=== PATIENT | male | born 1965 | race Caucasian/White ===

== ENCOUNTER 2016-12-14 20:51 | Inpatient (IN) | payer MEDICAID ==
[~2016-12-14] VITALS: Ht 185.4 cm; Wt 126.1 kg
[2016-12-14] MEDS ORDERED: HydrALAZINE HCL 20 MG/ML VIAL IVP ONE ×2 (21:45→23:00)
[2016-12-14] MEDS ORDERED: NITROGLYCERIN 2% (1 GM=INCH) PACKET TP ONE (21:45)
[2016-12-14 22:03] LABS: BASOPHILS % (AUTO) 0.5 % (0.0-2.0); EOSINOPHILS % (AUTO) 1.7 % (1.0-6.0); HEMOGLOBIN 11.7 g/dL (13.5-17.5); LYMPHOCYTES # (AUTO) 3.5 K/uL (1.0-4.8); LYMPHOCYTES % (AUTO) 25.8 % (22.0-44.0); MEAN CORPUSCULAR HEMOGLOBIN 28.7 pg (26.0-34.0); MEAN CORPUSCULAR HGB CONC 32.6 G/dL (31.0-37.0); MEAN CORPUSCULAR VOLUME 88 fL (80-100); MONOCYTES # (AUTO) 0.8 K/uL (0.1-1.0); MONOCYTES % (AUTO) 5.9 % (2.0-9.0); NEUTROPHILS # (AUTO) 8.9 K/uL (1.8-7.7); NEUTROPHILS % (AUTO) 66.1 % (40.0-70.0); PLATELET COUNT (AUTO) 272 K/uL (150-450); RED BLOOD CELL COUNT(AUTO) 4.09 MIL/uL (4.50-5.90); RED CELL DISTRIBUTION WIDTH 15.6 % (11.5-14.5); WHITE BLOOD COUNT (AUTO) 13.5 K/uL (4.5-11.0)
[2016-12-14 22:24] LABS: ANION GAP 15 mmol/L (8-16); CALCIUM, TOTAL 8.5 mg/dL (8.8-10.5); CARBON DIOXIDE 22 mmol/L (22-29); CHLORIDE 106 mmol/L (98-107); CREATININE 5.86 mg/dL (0.60-1.30); GLOMERULAR FILTR. RATE CALC 10 mL/min (>60); POTASSIUM 3.2 mmol/L (3.5-5.1); SODIUM SERUM 143 mmol/L (136-145); UREA NITROGEN, BLOOD 59 mg/dL (7-18)
[2016-12-14 22:31] LABS: B-TYPE NATRIURETIC PEPTIDE 537 pg/mL (0-100)
[2016-12-14 22:48] LABS: ALANINE AMINOTRANSFERASE 52 U/L (12-78); ALBUMIN 3.4 g/dL (3.4-5.0); ASPARTATE AMINOTRANSFERASE 27 U/L (15-37); BILIRUBIN,TOTAL 0.3 mg/dL (0.1-1.0); CREATINE KINASE MB 3.8 ng/mL (0-5); CREATINE KINASE, TOTAL 432 U/L (39-308); TOTAL PROTEIN, SERUM 7.7 g/dL (6.4-8.2)
[2016-12-14] MEDS ORDERED: NITROPRUSSIDE SODIUM 50 MG in DEXTROSE 5%-WATER 248 ML IV PRN (22:48)
[2016-12-14 22:50] LABS: APPEARANCE,URINE CLEAR (CLEAR); GLUCOSE, URINE (UA) NEGATIVE (NEGATIVE); KETONES,URINE NEGATIVE (NEGATIVE); LEUKOCYTE ESTERASE ,URINE NEGATIVE (NEGATIVE); OCCULT BLOOD,URINE MODERATE (NEGATIVE); PH,URINE 6.5 (5.0-8.0); PROTEIN,URINE SEE CONFIRM (NEGATIVE)
[2016-12-14 22:51] LABS: ADD UA MICROSCOPIC YES
[2016-12-14 22:58] LABS: RBC,URINE None Seen /HPF (0-2); SULFOSALICYLIC ACID,URINE 3+ (Negative); WBC,URINE 0-2 /HPF (0-5)
[2016-12-14] MEDS ORDERED: ZOLPIDEM TARTRATE 10 MG TABLET PO PRN (23:00)
[2016-12-14] MEDS ORDERED: ASPIRIN 81 MG CHEWABLE TABLET PO ONE ×2 (23:00)
[2016-12-14] MEDS ORDERED: NITROGLYCERIN 0.4 MG SUBLINGUAL TABLET #25 SL ONE (23:00)
[2016-12-14 23:01] LABS: INFLUENZA TYPE B NEGATIVE FOR TYPE B (NEGATIVE)
[2016-12-14] MEDS ORDERED: NITROGLYCERIN 50 MG/D5% WATER 250 ML IV PRN (23:07)
[2016-12-14] MEDS ORDERED: POTASSIUM CHLORIDE 20 MEQ ER TABLET PO ONE (23:45)
[2016-12-15] VITALS (12 sets, daily range): BP systolic 109–203; BP diastolic 49–118
[2016-12-15] MEDS: HydrALAZINE HCL 20 MG/ML VIAL IVP PRN ×6 (01:15→23:42)
[2016-12-15] MEDS: OxyCODONE HCL/ACETAMINOPHEN 5-325 MG TABLET PO PRN ×2 (02:41→12:08)
[2016-12-15] MEDS: ONDANSETRON HCL 4 MG/2 ML VIAL IVP PRN ×3 (02:57→20:11)
[2016-12-15] MEDS ORDERED: INFLUENZA VIRUS VACCINE QVS 2016-17 (3YR+)/PF 60 MCG/0.5 ML SYRINGE IM ONE (03:45)
[2016-12-15] MEDS: ACETAMINOPHEN 325 MG TABLET PO PRN (06:18)
[2016-12-15 06:42] LABS: BASOPHILS % (AUTO) 0.3 % (0.0-2.0); EOSINOPHILS % (AUTO) 0.2 % (1.0-6.0); HEMATOCRIT 33.9 % (41-53); HEMOGLOBIN 10.9 g/dL (13.5-17.5); LYMPHOCYTES # (AUTO) 1.7 K/uL (1.0-4.8); LYMPHOCYTES % (AUTO) 15.7 % (22.0-44.0); MEAN CORPUSCULAR HEMOGLOBIN 28.7 pg (26.0-34.0); MEAN CORPUSCULAR HGB CONC 32.3 G/dL (31.0-37.0); MEAN CORPUSCULAR VOLUME 89 fL (80-100); MONOCYTES # (AUTO) 0.4 K/uL (0.1-1.0); MONOCYTES % (AUTO) 3.6 % (2.0-9.0); NEUTROPHILS # (AUTO) 8.9 K/uL (1.8-7.7); NEUTROPHILS % (AUTO) 80.2 % (40.0-70.0); PLATELET COUNT (AUTO) 255 K/uL (150-450); RED BLOOD CELL COUNT(AUTO) 3.81 MIL/uL (4.50-5.90); RED CELL DISTRIBUTION WIDTH 15.9 % (11.5-14.5)
[2016-12-15 06:49] LABS: ALBUMIN 3.3 g/dL (3.4-5.0); BILIRUBIN,TOTAL 0.3 mg/dL (0.1-1.0); CALCIUM, TOTAL 8.6 mg/dL (8.8-10.5); CREATININE 5.68 mg/dL (0.60-1.30); TOTAL PROTEIN, SERUM 7.3 g/dL (6.4-8.2)
[2016-12-15 06:56] LABS: POTASSIUM 2.9 mmol/L (3.5-5.1)
[2016-12-15] MEDS: HEPARIN SODIUM,PORCINE 5,000 UNITS/ML VIAL SQ SCH ×4 (08:13→23:43)
[2016-12-15] MEDS: PANTOPRAZOLE SODIUM 40 MG DR TABLET PO SCH (08:13)
[2016-12-15] MEDS ORDERED: POTASSIUM CHLORIDE 20 MEQ ER TABLET PO ONE ×3 (10:45→23:30)
[2016-12-15 11:53] LABS: VITAMIN B12 LEVEL > 2000 pg/mL (211-911)
[2016-12-15] MEDS: AmLODIPine BESYLATE 5 MG TABLET PO SCH (12:04)
[2016-12-15 14:14] LABS: APPEARANCE,URINE CLEAR (CLEAR); GLUCOSE, URINE (UA) NEGATIVE (NEGATIVE); KETONES,URINE NEGATIVE (NEGATIVE); LEUKOCYTE ESTERASE ,URINE NEGATIVE (NEGATIVE); OCCULT BLOOD,URINE TRACE (NEGATIVE); PROTEIN,URINE SEE CONFIRM (NEGATIVE)
[2016-12-15 14:25] LABS: RBC,URINE 0-2 /HPF (0-2); WBC,URINE 0-2 /HPF (0-5)
[2016-12-15 14:26] LABS: SQUAMOUS EPITHELIAL CELL,UR Rare /LPF (None Seen)
[2016-12-15 15:31] LABS: CALCIUM, TOTAL 9.1 mg/dL (8.8-10.5); CREATININE 5.49 mg/dL (0.60-1.30)
[2016-12-15 15:40] LABS: POTASSIUM 2.9 mmol/L (3.5-5.1)
[2016-12-15] MEDS: MORPHINE SULFATE 2 MG/ML SYRINGE IVP PRN ×2 (16:05→20:12)
[2016-12-15] MEDS ORDERED: SODIUM CHLORIDE 0.9% 100 ML ONE ×2 (16:22→17:33)
[2016-12-15] MEDS: POTASSIUM CHL 10 MEQ/WATER 50 ML IV SCH ×2 (16:39→17:27)
[2016-12-15] MEDS ORDERED: BISACODYL 5 MG EC TABLET PO ONE (23:30)
[2016-12-16 05:28] VITALS: BP 170/86
[2016-12-16] MEDS: MORPHINE SULFATE 2 MG/ML SYRINGE IVP PRN ×2 (05:42→13:21)
[2016-12-16] MEDS: ONDANSETRON HCL 4 MG/2 ML VIAL IVP PRN ×2 (05:42→13:20)
[2016-12-16] MEDS: HydrALAZINE HCL 20 MG/ML VIAL IVP PRN ×3 (05:42→19:41)
[2016-12-16 07:10] VITALS: BP 158/81
[2016-12-16 07:46] LABS: CALCIUM, TOTAL 8.8 mg/dL (8.8-10.5); CREATININE 5.49 mg/dL (0.60-1.30); MAGNESIUM 2.2 mg/dL (1.80-2.40); PHOSPHORUS 4.7 mg/dL (2.5-4.9); POTASSIUM 3.1 mmol/L (3.5-5.1)
[2016-12-16] MEDS: HEPARIN SODIUM,PORCINE 5,000 UNITS/ML VIAL SQ SCH ×2 (08:13→16:57)
[2016-12-16] MEDS: AmLODIPine BESYLATE 5 MG TABLET PO SCH (08:13)
[2016-12-16] MEDS: PANTOPRAZOLE SODIUM 40 MG DR TABLET PO SCH (08:13)
[2016-12-16 11:17] VITALS: BP 180/95
[2016-12-16] MEDS ORDERED: POTASSIUM CHLORIDE 20 MEQ ER TABLET PO ONE (15:00)
[2016-12-16] MEDS: MAGNESIUM HYDROXIDE SUSPENSION 30 ML UDCUP PO PRN (15:20)
[2016-12-16] MEDS: HydrALAZINE HCL 25 MG TABLET PO SCH (15:21)
[2016-12-16 15:57] VITALS: BP 158/80
[2016-12-16 17:43] LABS: CREATININE 5.39 mg/dL (0.60-1.30)
[2016-12-16 19:25] VITALS: BP 185/93
[2016-12-17] VITALS (8 sets, daily range): BP systolic 158–198; BP diastolic 83–106
[2016-12-17] MEDS: HEPARIN SODIUM,PORCINE 5,000 UNITS/ML VIAL SQ SCH ×3 (00:40→17:20)
[2016-12-17] MEDS: HydrALAZINE HCL 25 MG TABLET PO SCH ×3 (00:40→17:19)
[2016-12-17] MEDS: HydrALAZINE HCL 20 MG/ML VIAL IVP PRN ×4 (06:11→20:58)
[2016-12-17] MEDS: ACETAMINOPHEN 325 MG TABLET PO PRN (06:11)
[2016-12-17 07:58] LABS: CREATININE 5.8 mg/dL (0.60-1.30); MAGNESIUM 2.5 mg/dL (1.80-2.40); POTASSIUM 3.3 mmol/L (3.5-5.1)
[2016-12-17] MEDS: AmLODIPine BESYLATE 10 MG TABLET PO SCH (08:45)
[2016-12-17 10:29] LABS: BASOPHILS # (AUTO) 0.03 K/uL (0.00-0.20); BASOPHILS % (AUTO) 0.3 % (0.0-2.0); EOSINOPHILS # (AUTO) 0.28 K/uL (0.00-0.70); EOSINOPHILS % (AUTO) 2.33 % (1.0-6.0); HEMATOCRIT 35.7 % (41-53); HEMOGLOBIN 11.8 g/dL (13.5-17.5); LYMPHOCYTES # (AUTO) 2.2 K/uL (1.0-4.8); LYMPHOCYTES % (AUTO) 18.4 % (22.0-44.0); MEAN CORPUSCULAR HEMOGLOBIN 29.1 pg (26.0-34.0); MEAN CORPUSCULAR HGB CONC 32.9 G/dL (31.0-37.0); MEAN CORPUSCULAR VOLUME 88 fL (80-100); MONOCYTES # (AUTO) 0.8 K/uL (0.1-1.0); MONOCYTES % (AUTO) 6.9 % (2.0-9.0); NEUTROPHILS # (AUTO) 8.8 K/uL (1.8-7.7); NEUTROPHILS % (AUTO) 72.1 % (40.0-70.0); PLATELET COUNT (AUTO) 264 K/uL (150-450); RED BLOOD CELL COUNT(AUTO) 4.04 MIL/uL (4.50-5.90); RED CELL DISTRIBUTION WIDTH 16.2 % (11.5-14.5); WHITE BLOOD COUNT (AUTO) 12.2 K/uL (4.5-11.0)
[2016-12-17 10:38] LABS: ALBUMIN 3.3 g/dL (3.4-5.0); BILIRUBIN,TOTAL 0.4 mg/dL (0.1-1.0); TOTAL PROTEIN, SERUM 7.8 g/dL (6.4-8.2)
[2016-12-17] MEDS: PANTOPRAZOLE SODIUM 40 MG DR TABLET PO SCH (10:39)
[2016-12-17] MEDS ORDERED: MIDAZOLAM HCL 2 MG/2 ML VIAL ONE (12:36)
[2016-12-17] MEDS ORDERED: FentaNYL CITRATE-PF 100 MCG/2 ML VIAL ONE (12:36)
[2016-12-17] MEDS ORDERED: FentaNYL CITRATE-PF 100 MCG/2 ML VIAL IVP ONE (12:45)
[2016-12-17] MEDS ORDERED: MIDAZOLAM HCL 2 MG/2 ML VIAL IVP ONE (12:46)
[2016-12-17] MEDS: SPIRONOLACTONE 25 MG TABLET PO SCH (15:25)
[2016-12-17] MEDS: MORPHINE SULFATE 2 MG/ML SYRINGE IVP PRN (21:15)
[2016-12-18] VITALS (9 sets, daily range): BP systolic 133–200; BP diastolic 81–118
[2016-12-18] MEDS: HydrALAZINE HCL 25 MG TABLET PO SCH ×3 (00:29→16:38)
[2016-12-18] MEDS: HEPARIN SODIUM,PORCINE 5,000 UNITS/ML VIAL SQ SCH ×3 (00:29→16:38)
[2016-12-18 05:41] LABS: COMPLEMENT C3 122 mg/dL (82-167); COMPLEMENT C4 24 mg/dL (14-44)
[2016-12-18] MEDS: HydrALAZINE HCL 20 MG/ML VIAL IVP PRN (06:10)
[2016-12-18] MEDS: MAGNESIUM HYDROXIDE SUSPENSION 30 ML UDCUP PO PRN (06:10)
[2016-12-18] MEDS: SPIRONOLACTONE 25 MG TABLET PO SCH (07:52)
[2016-12-18] MEDS: AmLODIPine BESYLATE 10 MG TABLET PO SCH (07:52)
[2016-12-18] MEDS: PANTOPRAZOLE SODIUM 40 MG DR TABLET PO SCH (07:53)
[2016-12-18 08:41] LABS: BASOPHILS % (AUTO) 0.3 % (0.0-2.0); EOSINOPHILS % (AUTO) 4.6 % (1.0-6.0); HEMATOCRIT 34.8 % (41-53); HEMOGLOBIN 11.5 g/dL (13.5-17.5); LYMPHOCYTES # (AUTO) 1.8 K/uL (1.0-4.8); MEAN CORPUSCULAR HEMOGLOBIN 29.2 pg (26.0-34.0); MEAN CORPUSCULAR VOLUME 89 fL (80-100); MONOCYTES # (AUTO) 0.8 K/uL (0.1-1.0); MONOCYTES % (AUTO) 7.2 % (2.0-9.0); NEUTROPHILS # (AUTO) 8.2 K/uL (1.8-7.7); NEUTROPHILS % (AUTO) 71.9 % (40.0-70.0); PLATELET COUNT (AUTO) 279 K/uL (150-450); RED BLOOD CELL COUNT(AUTO) 3.93 MIL/uL (4.50-5.90); RED CELL DISTRIBUTION WIDTH 16.1 % (11.5-14.5); WHITE BLOOD COUNT (AUTO) 11.5 K/uL (4.5-11.0)
[2016-12-18 09:05] LABS: IGG (IMMUNOFIXATION) 1383 mg/dL (700-1600)
[2016-12-18 09:13] LABS: ALBUMIN 3.1 g/dL (3.4-5.0); BILIRUBIN,TOTAL 0.4 mg/dL (0.1-1.0); CALCIUM, TOTAL 8.6 mg/dL (8.8-10.5); CREATININE 5.6 mg/dL (0.60-1.30); MAGNESIUM 2.6 mg/dL (1.80-2.40); POTASSIUM 3.4 mmol/L (3.5-5.1); TOTAL PROTEIN, SERUM 7.3 g/dL (6.4-8.2)
[2016-12-18] MEDS: OxyCODONE HCL/ACETAMINOPHEN 5-325 MG TABLET PO PRN (10:20)
[2016-12-18] MEDS: LABETALOL HCL 100 MG TABLET PO SCH ×2 (10:20→21:03)
[2016-12-18] MEDS: CloNIDine HCL 0.1 MG TABLET PO SCH ×2 (12:39→16:38)
[2016-12-18 13:12] LABS: ALPHA-1 GLOBULINS(PEP) 0.3 g/dL (0.0-0.4); ALPHA-2 GLOBULINS (PEP) 0.8 g/dL (0.4-1.0); BETA (PEP) 0.9 g/dL (0.7-1.3); GAMMA GLOBULINS (PEP) 1.5 g/dL (0.4-1.8); GLOBULIN TOTAL (PEP) 3.4 g/dL (2.2-3.9); M-SPIKE (PEP) Not Observed g/dL (Not Observed); TOTAL PROTEIN 6.9 g/dL (6.0-8.5)
[2016-12-18 14:37] LABS: ATYPICAL P-ANCA AB <1:20 titer (Neg:<1:20); CYTOPLASMIC (C-ANCA) AB, IGG <1:20 titer (Neg:<1:20); PERINUCLEAR (P-ANCA) IGG AB <1:20 titer (Neg:<1:20)
[2016-12-18 16:42] LABS: ALPHA-1 URINE (ELP) 4.2 %; ALPHA-2 URINE(ELP) 16.3 %; BETA URINE(ELP) 15.4 %; GAMMA URINE(ELP) 23.5 %
[2016-12-18 20:07] LABS: ANTI NUCLEAR AB,DIRECT(SCREEN) Negative (Negative)
[2016-12-19] VITALS (7 sets, daily range): BP systolic 116–180; BP diastolic 68–110
[2016-12-19] MEDS: CloNIDine HCL 0.1 MG TABLET PO SCH ×4 (00:10→23:35)
[2016-12-19] MEDS: HydrALAZINE HCL 25 MG TABLET PO SCH ×4 (00:10→23:35)
[2016-12-19] MEDS: HEPARIN SODIUM,PORCINE 5,000 UNITS/ML VIAL SQ SCH ×4 (00:10→23:35)
[2016-12-19] MEDS: MAGNESIUM HYDROXIDE SUSPENSION 30 ML UDCUP PO PRN (05:25)
[2016-12-19] MEDS: OxyCODONE HCL/ACETAMINOPHEN 5-325 MG TABLET PO PRN ×2 (05:25→20:18)
[2016-12-19 06:52] LABS: BASOPHILS # (AUTO) 0.06 K/uL (0.00-0.20); BASOPHILS % (AUTO) 0.6 % (0.0-2.0); EOSINOPHILS # (AUTO) 0.64 K/uL (0.00-0.70); EOSINOPHILS % (AUTO) 5.98 % (1.0-6.0); HEMATOCRIT 33.8 % (41-53); HEMOGLOBIN 11.1 g/dL (13.5-17.5); LYMPHOCYTES # (AUTO) 2.2 K/uL (1.0-4.8); LYMPHOCYTES % (AUTO) 20.5 % (22.0-44.0); MEAN CORPUSCULAR HEMOGLOBIN 29.4 pg (26.0-34.0); MEAN CORPUSCULAR VOLUME 89 fL (80-100); MONOCYTES # (AUTO) 0.9 K/uL (0.1-1.0); MONOCYTES % (AUTO) 7.9 % (2.0-9.0); NEUTROPHILS % (AUTO) 65.1 % (40.0-70.0); PLATELET COUNT (AUTO) 272 K/uL (150-450); RED BLOOD CELL COUNT(AUTO) 3.79 MIL/uL (4.50-5.90); RED CELL DISTRIBUTION WIDTH 16.4 % (11.5-14.5); WHITE BLOOD COUNT (AUTO) 10.7 K/uL (4.5-11.0)
[2016-12-19 07:23] LABS: ALBUMIN 2.9 g/dL (3.4-5.0); BILIRUBIN,TOTAL 0.3 mg/dL (0.1-1.0); CALCIUM, TOTAL 8.4 mg/dL (8.8-10.5); CREATININE 5.55 mg/dL (0.60-1.30); MAGNESIUM 2.7 mg/dL (1.80-2.40); PHOSPHORUS 4.6 mg/dL (2.5-4.9); POTASSIUM 3.7 mmol/L (3.5-5.1); TOTAL PROTEIN, SERUM 6.9 g/dL (6.4-8.2)
[2016-12-19] MEDS: PANTOPRAZOLE SODIUM 40 MG DR TABLET PO SCH (08:13)
[2016-12-19] MEDS: SPIRONOLACTONE 25 MG TABLET PO SCH (08:13)
[2016-12-19] MEDS: AmLODIPine BESYLATE 10 MG TABLET PO SCH (08:13)
[2016-12-19] MEDS: LABETALOL HCL 100 MG TABLET PO SCH ×2 (12:05→20:18)
[2016-12-19] MEDS: HydrALAZINE HCL 20 MG/ML VIAL IVP PRN (12:06)
[2016-12-20] VITALS (7 sets, daily range): BP systolic 138–162; BP diastolic 74–95
[2016-12-20 07:14] LABS: BASOPHILS % (AUTO) 0.4 % (0.0-2.0); EOSINOPHILS % (AUTO) 6.6 % (1.0-6.0); HEMATOCRIT 34.7 % (41-53); HEMOGLOBIN 11.1 g/dL (13.5-17.5); LYMPHOCYTES # (AUTO) 2.1 K/uL (1.0-4.8); LYMPHOCYTES % (AUTO) 22.3 % (22.0-44.0); MEAN CORPUSCULAR HEMOGLOBIN 28.8 pg (26.0-34.0); MEAN CORPUSCULAR HGB CONC 31.9 G/dL (31.0-37.0); MEAN CORPUSCULAR VOLUME 90 fL (80-100); MONOCYTES # (AUTO) 0.7 K/uL (0.1-1.0); MONOCYTES % (AUTO) 7.2 % (2.0-9.0); NEUTROPHILS # (AUTO) 6.1 K/uL (1.8-7.7); NEUTROPHILS % (AUTO) 63.5 % (40.0-70.0); PLATELET COUNT (AUTO) 290 K/uL (150-450); RED BLOOD CELL COUNT(AUTO) 3.85 MIL/uL (4.50-5.90); RED CELL DISTRIBUTION WIDTH 15.5 % (11.5-14.5); WHITE BLOOD COUNT (AUTO) 9.6 K/uL (4.5-11.0)
[2016-12-20 07:34] LABS: ALBUMIN 2.9 g/dL (3.4-5.0); BILIRUBIN,TOTAL 0.3 mg/dL (0.1-1.0); CALCIUM, TOTAL 8.6 mg/dL (8.8-10.5); CREATININE 5.34 mg/dL (0.60-1.30); MAGNESIUM 2.7 mg/dL (1.80-2.40); PHOSPHORUS 4.9 mg/dL (2.5-4.9); POTASSIUM 3.9 mmol/L (3.5-5.1)
[2016-12-20] MEDS: HEPARIN SODIUM,PORCINE 5,000 UNITS/ML VIAL SQ SCH ×2 (08:00→16:00)
[2016-12-20] MEDS: HydrALAZINE HCL 20 MG/ML VIAL IVP PRN (09:16)
[2016-12-20 10:13] LABS: PROTHROMBIN TIME 10.6 SEC (9.4-11.6)
[2016-12-20] MEDS: LABETALOL HCL 100 MG TABLET PO SCH ×2 (11:09→20:30)
[2016-12-20] MEDS: HydrALAZINE HCL 25 MG TABLET PO SCH ×2 (11:09→16:00)
[2016-12-20] MEDS: CloNIDine HCL 0.1 MG TABLET PO SCH ×2 (11:09→16:00)
[2016-12-20] MEDS: SPIRONOLACTONE 25 MG TABLET PO SCH (11:09)
[2016-12-20] MEDS: PANTOPRAZOLE SODIUM 40 MG DR TABLET PO SCH (11:10)
[2016-12-20] MEDS: AmLODIPine BESYLATE 10 MG TABLET PO SCH (11:10)
[2016-12-20] MEDS ORDERED: MIDAZOLAM HCL 2 MG/2 ML VIAL ONE (13:25)
[2016-12-20] MEDS ORDERED: FentaNYL CITRATE-PF 100 MCG/2 ML VIAL ONE (13:25)
[2016-12-20] MEDS ORDERED: HEPARIN SODIUM 1000 UNITS/NS 500 ML ONE (13:26)
[2016-12-20] MEDS ORDERED: LIDOCAINE HCL 1%/EPI 1:200,000/PF 10 ML VIAL ONE (13:26)
[2016-12-20] MEDS ORDERED: HEPARIN SODIUM,PORCINE 1,000 UNITS/ML 10 ML VIAL ONE (13:26)
[2016-12-20] MEDS ORDERED: CeFAZolin 1 GM/DEXTROSE 50 ML IV ONE ×2 (13:31→15:45)
[2016-12-20] MEDS ORDERED: MIDAZOLAM HCL 2 MG/2 ML VIAL IVP ONE (14:20)
[2016-12-20] MEDS ORDERED: FentaNYL CITRATE-PF 100 MCG/2 ML VIAL IVP ONE (14:30)
[2016-12-20] MEDS: OxyCODONE HCL/ACETAMINOPHEN 5-325 MG TABLET PO PRN (20:30)
[2016-12-21] MEDS: HydrALAZINE HCL 25 MG TABLET PO SCH ×3 (00:10→17:39)
[2016-12-21] MEDS: CloNIDine HCL 0.1 MG TABLET PO SCH ×3 (00:10→17:39)
[2016-12-21] MEDS ORDERED: FentaNYL CITRATE-PF 100 MCG/2 ML VIAL IVP ONE (00:17)
[2016-12-21 03:47] VITALS: BP 136/76
[2016-12-21 05:58] LABS: BASOPHILS % (AUTO) 0.5 % (0.0-2.0); EOSINOPHILS % (AUTO) 4.8 % (1.0-6.0); HEMATOCRIT 34.9 % (41-53); HEMOGLOBIN 11.1 g/dL (13.5-17.5); LYMPHOCYTES # (AUTO) 2.6 K/uL (1.0-4.8); LYMPHOCYTES % (AUTO) 24.7 % (22.0-44.0); MEAN CORPUSCULAR HEMOGLOBIN 28.5 pg (26.0-34.0); MEAN CORPUSCULAR HGB CONC 31.8 G/dL (31.0-37.0); MEAN CORPUSCULAR VOLUME 90 fL (80-100); MONOCYTES # (AUTO) 0.8 K/uL (0.1-1.0); MONOCYTES % (AUTO) 7.3 % (2.0-9.0); NEUTROPHILS # (AUTO) 6.5 K/uL (1.8-7.7); NEUTROPHILS % (AUTO) 62.7 % (40.0-70.0); PLATELET COUNT (AUTO) 299 K/uL (150-450); RED BLOOD CELL COUNT(AUTO) 3.89 MIL/uL (4.50-5.90); RED CELL DISTRIBUTION WIDTH 15.6 % (11.5-14.5); WHITE BLOOD COUNT (AUTO) 10.4 K/uL (4.5-11.0)
[2016-12-21 06:16] LABS: BILIRUBIN,TOTAL 0.4 mg/dL (0.1-1.0); CALCIUM, TOTAL 8.8 mg/dL (8.8-10.5); CREATININE 5.3 mg/dL (0.60-1.30); TOTAL PROTEIN, SERUM 7.3 g/dL (6.4-8.2)
[2016-12-21] MEDS ORDERED: LIDOCAINE HCL/PF 1% 30 ML VIAL ONE (06:49)
[2016-12-21] MEDS ORDERED: HEPARIN SODIUM,PORCINE 5,000 UNITS/ML VIAL SQ ONE (06:49)
[2016-12-21] MEDS ORDERED: SODIUM CHLORIDE 0.9% 10 ML ONE (06:49)
[2016-12-21 07:02] VITALS: BP 167/109
[2016-12-21 07:21] LABS: POTASSIUM 4.9 mmol/L (3.5-5.1)
[2016-12-21] MEDS: AmLODIPine BESYLATE 10 MG TABLET PO SCH (07:37)
[2016-12-21] MEDS: LABETALOL HCL 100 MG TABLET PO SCH ×2 (07:37→20:38)
[2016-12-21] MEDS: SPIRONOLACTONE 25 MG TABLET PO SCH (07:37)
[2016-12-21] MEDS: HEPARIN SODIUM,PORCINE 5,000 UNITS/ML VIAL SQ SCH ×3 (07:38→17:39)
[2016-12-21] MEDS: HydrALAZINE HCL 20 MG/ML VIAL IVP PRN (07:41)
[2016-12-21] MEDS ORDERED: ALTEPLASE 2 MG/VIAL IVCATH ONE ×2 (08:00)
[2016-12-21] MEDS ORDERED: HEPARIN SODIUM,PORCINE 1,000 UNITS/ML VIAL IVP ONE ×2 (08:00)
[2016-12-21] MEDS: PANTOPRAZOLE SODIUM 40 MG DR TABLET PO SCH (08:18)
[2016-12-21] MEDS ORDERED: SODIUM CHLORIDE 0.9% 1,000 ML IV ONE ×2 (09:30→11:52)
[2016-12-21 17:21] VITALS: BP 137/102
[2016-12-21 19:55] VITALS: BP 132/98
[2016-12-21] MEDS: OxyCODONE HCL/ACETAMINOPHEN 5-325 MG TABLET PO PRN (20:46)
[2016-12-21] MEDS ORDERED: HEPARIN SODIUM,PORCINE 1,000 UNITS/ML 10 ML VIAL IVP ONE ×2 (22:39→22:42)
[2016-12-21] MEDS ORDERED: PROPOFOL 1% 20 ML VIAL IVP ONE ×2 (22:39→22:42)
[2016-12-22] VITALS (7 sets, daily range): BP systolic 130–149; BP diastolic 76–96
[2016-12-22] MEDS: CloNIDine HCL 0.1 MG TABLET PO SCH ×4 (00:57→23:53)
[2016-12-22] MEDS: HEPARIN SODIUM,PORCINE 5,000 UNITS/ML VIAL SQ SCH ×4 (00:57→23:53)
[2016-12-22] MEDS: HydrALAZINE HCL 25 MG TABLET PO SCH ×3 (00:57→16:27)
[2016-12-22 06:40] LABS: BASOPHILS % (AUTO) 0.5 % (0.0-2.0); EOSINOPHILS % (AUTO) 3.6 % (1.0-6.0); HEMATOCRIT 36.3 % (41-53); HEMOGLOBIN 11.6 g/dL (13.5-17.5); LYMPHOCYTES # (AUTO) 2.4 K/uL (1.0-4.8); LYMPHOCYTES % (AUTO) 22.5 % (22.0-44.0); MEAN CORPUSCULAR HEMOGLOBIN 28.7 pg (26.0-34.0); MEAN CORPUSCULAR HGB CONC 32.1 G/dL (31.0-37.0); MEAN CORPUSCULAR VOLUME 90 fL (80-100); MONOCYTES # (AUTO) 0.8 K/uL (0.1-1.0); MONOCYTES % (AUTO) 7.8 % (2.0-9.0); NEUTROPHILS # (AUTO) 7.1 K/uL (1.8-7.7); NEUTROPHILS % (AUTO) 65.6 % (40.0-70.0); PLATELET COUNT (AUTO) 305 K/uL (150-450); RED BLOOD CELL COUNT(AUTO) 4.05 MIL/uL (4.50-5.90); RED CELL DISTRIBUTION WIDTH 15.7 % (11.5-14.5); WHITE BLOOD COUNT (AUTO) 10.9 K/uL (4.5-11.0)
[2016-12-22 07:08] LABS: ALBUMIN 3.2 g/dL (3.4-5.0); BILIRUBIN,TOTAL 0.3 mg/dL (0.1-1.0); CALCIUM, TOTAL 8.8 mg/dL (8.8-10.5); CREATININE 4.77 mg/dL (0.60-1.30); POTASSIUM 4.5 mmol/L (3.5-5.1); TOTAL PROTEIN, SERUM 7.6 g/dL (6.4-8.2)
[2016-12-22] MEDS: PANTOPRAZOLE SODIUM 40 MG DR TABLET PO SCH (09:02)
[2016-12-22] MEDS: SPIRONOLACTONE 25 MG TABLET PO SCH (11:27)
[2016-12-22] MEDS: LABETALOL HCL 100 MG TABLET PO SCH ×2 (11:27→21:27)
[2016-12-22] MEDS: AmLODIPine BESYLATE 10 MG TABLET PO SCH (11:28)
[2016-12-22] MEDS ORDERED: HEPARIN SODIUM,PORCINE 1,000 UNITS/ML VIAL IVP ONE (19:34)
[2016-12-23] VITALS (7 sets, daily range): BP systolic 143–151; BP diastolic 83–108
[2016-12-23 06:48] LABS: BASOPHILS % (AUTO) 0.3 % (0.0-2.0); HEMATOCRIT 35.1 % (41-53); HEMOGLOBIN 11.3 g/dL (13.5-17.5); LYMPHOCYTES # (AUTO) 2.4 K/uL (1.0-4.8); LYMPHOCYTES % (AUTO) 22.1 % (22.0-44.0); MEAN CORPUSCULAR HEMOGLOBIN 28.9 pg (26.0-34.0); MEAN CORPUSCULAR HGB CONC 32.2 G/dL (31.0-37.0); MEAN CORPUSCULAR VOLUME 90 fL (80-100); MONOCYTES # (AUTO) 0.9 K/uL (0.1-1.0); MONOCYTES % (AUTO) 8.2 % (2.0-9.0); NEUTROPHILS # (AUTO) 7.3 K/uL (1.8-7.7); NEUTROPHILS % (AUTO) 66.4 % (40.0-70.0); PLATELET COUNT (AUTO) 298 K/uL (150-450); RED BLOOD CELL COUNT(AUTO) 3.91 MIL/uL (4.50-5.90); RED CELL DISTRIBUTION WIDTH 15.7 % (11.5-14.5)
[2016-12-23 07:27] LABS: BILIRUBIN,TOTAL 0.4 mg/dL (0.1-1.0); CALCIUM, TOTAL 8.6 mg/dL (8.8-10.5); CREATININE 5.51 mg/dL (0.60-1.30); POTASSIUM 4.6 mmol/L (3.5-5.1); TOTAL PROTEIN, SERUM 7.4 g/dL (6.4-8.2)
[2016-12-23] MEDS: CloNIDine HCL 0.1 MG TABLET PO SCH ×2 (08:00→16:13)
[2016-12-23] MEDS: HEPARIN SODIUM,PORCINE 5,000 UNITS/ML VIAL SQ SCH ×2 (08:00→16:11)
[2016-12-23] MEDS: HydrALAZINE HCL 25 MG TABLET PO SCH ×3 (08:00→17:05)
[2016-12-23] MEDS: PANTOPRAZOLE SODIUM 40 MG DR TABLET PO SCH (09:00)
[2016-12-23] MEDS: AmLODIPine BESYLATE 10 MG TABLET PO SCH (09:00)
[2016-12-23] MEDS: SPIRONOLACTONE 25 MG TABLET PO SCH (09:00)
[2016-12-23] MEDS: LABETALOL HCL 100 MG TABLET PO SCH ×3 (09:00→20:20)
[2016-12-23] MEDS ORDERED: SODIUM CHLORIDE 0.9% 1,000 ML IV ONE ×2 (12:21→12:22)
[2016-12-23] MEDS: OxyCODONE HCL/ACETAMINOPHEN 5-325 MG TABLET PO PRN (17:12)
[2016-12-24] MEDS: HEPARIN SODIUM,PORCINE 5,000 UNITS/ML VIAL SQ SCH ×4 (00:04→23:06)
[2016-12-24] MEDS: CloNIDine HCL 0.1 MG TABLET PO SCH ×4 (00:04→23:07)
[2016-12-24 04:47] VITALS: BP 144/90
[2016-12-24 06:41] LABS: BASOPHILS % (AUTO) 0.4 % (0.0-2.0); EOSINOPHILS % (AUTO) 3.2 % (1.0-6.0); HEMATOCRIT 35.8 % (41-53); HEMOGLOBIN 11.6 g/dL (13.5-17.5); LYMPHOCYTES # (AUTO) 2.5 K/uL (1.0-4.8); LYMPHOCYTES % (AUTO) 23.8 % (22.0-44.0); MEAN CORPUSCULAR HEMOGLOBIN 28.9 pg (26.0-34.0); MEAN CORPUSCULAR HGB CONC 32.4 G/dL (31.0-37.0); MEAN CORPUSCULAR VOLUME 89 fL (80-100); MONOCYTES # (AUTO) 0.8 K/uL (0.1-1.0); MONOCYTES % (AUTO) 7.6 % (2.0-9.0); NEUTROPHILS # (AUTO) 6.9 K/uL (1.8-7.7); PLATELET COUNT (AUTO) 347 K/uL (150-450); RED BLOOD CELL COUNT(AUTO) 4.03 MIL/uL (4.50-5.90); RED CELL DISTRIBUTION WIDTH 15.1 % (11.5-14.5); WHITE BLOOD COUNT (AUTO) 10.7 K/uL (4.5-11.0)
[2016-12-24 07:13] LABS: ALBUMIN 3.2 g/dL (3.4-5.0); BILIRUBIN,TOTAL 0.4 mg/dL (0.1-1.0); CREATININE 4.74 mg/dL (0.60-1.30); POTASSIUM 4.3 mmol/L (3.5-5.1)
[2016-12-24 07:29] VITALS: BP 160/68
[2016-12-24] MEDS: HydrALAZINE HCL 25 MG TABLET PO SCH ×4 (08:47→23:07)
[2016-12-24] MEDS: SPIRONOLACTONE 25 MG TABLET PO SCH (08:47)
[2016-12-24] MEDS: LABETALOL HCL 100 MG TABLET PO SCH ×2 (08:47→20:18)
[2016-12-24] MEDS: AmLODIPine BESYLATE 10 MG TABLET PO SCH (08:47)
[2016-12-24] MEDS: PANTOPRAZOLE SODIUM 40 MG DR TABLET PO SCH (08:47)
[2016-12-24 10:36] LABS: GBM IGA ANTIBODY (IFA) < 1:10 titer
[2016-12-24 12:52] VITALS: BP 122/76
[2016-12-24 16:14] VITALS: BP 129/94
[2016-12-24 20:40] VITALS: BP 144/85
[2016-12-24 23:58] VITALS: BP 149/88
[2016-12-25 04:45] VITALS: BP 147/92
[2016-12-25 06:42] LABS: CREATININE 5.28 mg/dL (0.60-1.30); POTASSIUM 4.7 mmol/L (3.5-5.1)
[2016-12-25 07:48] VITALS: BP 152/94
[2016-12-25] MEDS: HEPARIN SODIUM,PORCINE 5,000 UNITS/ML VIAL SQ SCH (08:12)
[2016-12-25] MEDS: SPIRONOLACTONE 25 MG TABLET PO SCH (08:12)
[2016-12-25] MEDS: LABETALOL HCL 100 MG TABLET PO SCH (08:12)
[2016-12-25] MEDS: AmLODIPine BESYLATE 10 MG TABLET PO SCH (08:12)
[2016-12-25] MEDS: CloNIDine HCL 0.1 MG TABLET PO SCH (08:12)
[2016-12-25] MEDS: PANTOPRAZOLE SODIUM 40 MG DR TABLET PO SCH (08:12)
[2016-12-25] MEDS: HydrALAZINE HCL 25 MG TABLET PO SCH ×2 (08:13→20:32)
[2016-12-25 12:00] VITALS: BP 142/84
[2016-12-25 15:23] LABS: GLUCOSE,POINT OF CARE 122 MG/DL (70-110)
[2016-12-25] MEDS ORDERED: SODIUM CHLORIDE 0.9% 1,000 ML IV ONE ×2 (15:38)
[2016-12-25 16:58] LABS: FREE LAMBDA LT CHAINS,URINE 44.3 mg/L (0.24-6.66); KAPPA/LAMBDA RATIO,URINE 9.98 (2.04-10.37)
[2016-12-25 19:38] VITALS: BP 160/102
[2016-12-25 19:45] VITALS: BP 156/102
[2016-12-25] MEDS ORDERED: AMLO-512 PO (19:52)
[2016-12-25] MEDS ORDERED: HYDR25 PO (19:53)
[2016-12-25] MEDS ORDERED: CLON.1 PO (19:53)
[2016-12-25] MEDS ORDERED: SPIR25 PO (19:54)
[2016-12-25] MEDS ORDERED: LABE100 PO (19:54)
[2016-12-25] MEDS ORDERED: HEPARIN SODIUM,PORCINE 1,000 UNITS/ML VIAL IVP ONE ×3 (20:00→21:59)
[2016-12-25] MEDS ORDERED: LABETALOL HCL 200 MG TABLET PO SCH (21:00)
[2016-12-25] MEDS: ACETAMINOPHEN 325 MG TABLET PO PRN (21:24)
== END 2016-12-25 22:00 | disposition home or self-care (01) | DRG 180 ==
LOC: EMS 20:53 → 5N 22:45 → 6N 12-22 18:50
PROVIDERS: ADMIT Hospitalist; ATTEND Hospitalist
PROC: 3E0234Z Introduction of Serum, Toxoid and Vaccine into Muscle, Percutaneous Approach (ICD-10-PCS; 2016-12-16)
PROC: 0TB13ZX Excision of Left Kidney, Percutaneous Approach, Diagnostic (ICD-10-PCS; 2016-12-17)
PROC: B543ZZA Ultrasonography of Right Jugular Veins, Guidance (ICD-10-PCS; 2016-12-20)
PROC: 05HM33Z Insertion of Infusion Device into Right Internal Jugular Vein, Percutaneous Approach (ICD-10-PCS; 2016-12-20)
PROC: B5131ZA Fluoroscopy of Right Jugular Veins using Low Osmolar Contrast, Guidance (ICD-10-PCS; 2016-12-20)
PROC: 5A1D60Z (ICD-10-PCS; 2016-12-21)
PROC: 03180ZD Bypass Left Brachial Artery to Upper Arm Vein, Open Approach (ICD-10-PCS; principal; 2016-12-21 15:45)
DX: I16.9 Hypertensive crisis, unspecified (principal); N17.0 Acute kidney failure with tubular necrosis; I50.31 Acute diastolic (congestive) heart failure; E44.0 Moderate protein-calorie malnutrition; I15.2 Hypertension secondary to endocrine disorders; I13.2 Hypertensive heart and chronic kidney disease with heart failure and with stage 5 chronic kidney disease, or end stage renal disease; N18.6 End stage renal disease; E87.70 Fluid overload, unspecified; D64.9 Anemia, unspecified; D72.829 Elevated white blood cell count, unspecified; E87.6 Hypokalemia; E66.01 Morbid (severe) obesity due to excess calories; H54.62 Unqualified visual loss, left eye, normal vision right eye; N26.9 Renal sclerosis, unspecified; E26.9 Hyperaldosteronism, unspecified; Z99.2 Dependence on renal dialysis; Z23 Encounter for immunization; I25.2 Old myocardial infarction; Z68.36 Body mass index [BMI] 36.0-36.9, adult
CPT/HCPCS: 36245; 36561; 50200; 70450; 76770; 76937; 80307; 82088; 82565; 82570; 82607; 82746; 82784; 82962; 83540; 83550; 83735; 83874; 83883; 84100; 84132; 84155; 84156; 84165; 84166; 84244; 84300; 84520; 84540; 86038; 86160; 86255; 86256; 86334; 86704; 86706; 87040; 87340; 87804; 88300; 88305; 88313; 88346; 88348; 90471; 90935; 93005; 93970; 96374; 96376; 99285; J0360; J0690; J1644; J2250; J2270; J2405; J2704; J2997; J3010; J3480; J3490; J7030; J7050; J7060

== ENCOUNTER 2017-01-28 20:16 | Emergency (ER) | payer MEDICAID ==
[~2017-01-28] VITALS: Ht 188 cm; Wt 124.0 kg
[~2017-01-28 20:16] MED LIST: AMLO-512 PO; CLON.1 PO; HYDR25 PO; LABE100 PO; SPIR25 PO
[2017-01-28 20:55] LABS: BASOPHILS # (AUTO) 0.09 K/uL (0.00-0.20); BASOPHILS % (AUTO) 0.9 % (0.0-2.0); EOSINOPHILS # (AUTO) 0.32 K/uL (0.00-0.70); EOSINOPHILS % (AUTO) 3.02 % (1.0-6.0); HEMATOCRIT 36.4 % (41-53); HEMOGLOBIN 12.1 g/dL (13.5-17.5); LYMPHOCYTES # (AUTO) 3.4 K/uL (1.0-4.8); LYMPHOCYTES % (AUTO) 31.6 % (22.0-44.0); MEAN CORPUSCULAR HEMOGLOBIN 29.2 pg (26.0-34.0); MEAN CORPUSCULAR HGB CONC 33.3 G/dL (31.0-37.0); MEAN CORPUSCULAR VOLUME 88 fL (80-100); MONOCYTES # (AUTO) 0.8 K/uL (0.1-1.0); MONOCYTES % (AUTO) 7.7 % (2.0-9.0); NEUTROPHILS % (AUTO) 56.8 % (40.0-70.0); PLATELET COUNT (AUTO) 247 K/uL (150-450); RED BLOOD CELL COUNT(AUTO) 4.14 MIL/uL (4.50-5.90); RED CELL DISTRIBUTION WIDTH 13.5 % (11.5-14.5); WHITE BLOOD COUNT (AUTO) 10.6 K/uL (4.5-11.0)
[2017-01-28 21:09] LABS: CALCIUM, TOTAL 9.3 mg/dL (8.8-10.5); CREATININE 5.74 mg/dL (0.60-1.30); POTASSIUM 3.8 mmol/L (3.5-5.1)
[2017-01-28 21:16] LABS: ALBUMIN 4.1 g/dL (3.4-5.0); BILIRUBIN,TOTAL 0.2 mg/dL (0.1-1.0)
[2017-01-29 00:14] VITALS: BP 144/84
== END 2017-01-29 00:21 | disposition home or self-care (01) ==
LOC: EMS 20:17
DX: I12.0 Hypertensive chronic kidney disease with stage 5 chronic kidney disease or end stage renal disease (principal); N18.6 End stage renal disease
CPT/HCPCS: 70450; 93005; 99285

== ENCOUNTER 2018-02-15 15:14 | Inpatient (IN) | payer SELFPAY ==
[~2018-02-15] VITALS: Ht 177.8 cm; Wt 134.8 kg
[~2018-02-15 15:14] MED LIST changes: +CLON-570 PO; -CLON.1 PO; -HYDR25 PO; +HYDR25TA84 PO
[2018-02-15] MEDS ORDERED: NITROGLYCERIN 2% (1 GM=INCH) PACKET TP ONE (16:00)
[2018-02-15 16:03] LABS: BASOPHILS % (AUTO) 0.6 % (0.0-2.0); EOSINOPHILS % (AUTO) 3.6 % (1.0-6.0); HEMATOCRIT 40.8 % (41-53); HEMOGLOBIN 13.7 g/dL (13.5-17.5); LYMPHOCYTES # (AUTO) 2.9 K/uL (1.0-4.8); LYMPHOCYTES % (AUTO) 30.3 % (22.0-44.0); MEAN CORPUSCULAR HEMOGLOBIN 30.4 pg (26.0-34.0); MEAN CORPUSCULAR HGB CONC 33.6 G/dL (31.0-37.0); MEAN CORPUSCULAR VOLUME 90 fL (80-100); MONOCYTES # (AUTO) 0.8 K/uL (0.1-1.0); MONOCYTES % (AUTO) 8.8 % (2.0-9.0); NEUTROPHILS # (AUTO) 5.4 K/uL (1.8-7.7); NEUTROPHILS % (AUTO) 56.7 % (40.0-70.0); PLATELET COUNT (AUTO) 270 K/uL (150-450); RED BLOOD CELL COUNT(AUTO) 4.51 MIL/uL (4.50-5.90); RED CELL DISTRIBUTION WIDTH 15.6 % (11.5-14.5)
[2018-02-15 16:13] LABS: ANION GAP 11 mmol/L (8-16); CARBON DIOXIDE 27 mmol/L (22-29); CHLORIDE 102 mmol/L (98-107); CREATININE 4.43 mg/dL (0.60-1.30); GLOMERULAR FILTR. RATE CALC 14 mL/min (>60); GLUCOSE,RANDOM 104 mg/dL (70-110); POTASSIUM 3.4 mmol/L (3.5-5.1); SODIUM SERUM 140 mmol/L (136-145); UREA NITROGEN, BLOOD 39 mg/dL (7-18)
[2018-02-15 16:23] LABS: B-TYPE NATRIURETIC PEPTIDE 10 pg/mL (0-100)
[2018-02-15 16:39] LABS: ALANINE AMINOTRANSFERASE 62 U/L (12-78); ALBUMIN 3.8 g/dL (3.4-5.0); ALKALINE PHOSPHATASE 92 U/L (46-116); ASPARTATE AMINOTRANSFERASE 23 U/L (15-37); BILIRUBIN,TOTAL 0.3 mg/dL (0.1-1.0); CREATINE KINASE MB 1.6 ng/mL (0-5); CREATINE KINASE, TOTAL 279 U/L (39-308); PROTHROMBIN TIME 10.6 SEC (9.4-11.6); TOTAL PROTEIN, SERUM 7.9 g/dL (6.4-8.2)
[2018-02-15] MEDS ORDERED: ACETAMINOPHEN 325 MG TABLET PO PRN ×2 (17:30→21:15)
[2018-02-15] MEDS ORDERED: ONDANSETRON HCL 4 MG/2 ML VIAL IVP PRN ×2 (17:30→21:15)
[2018-02-15] MEDS ORDERED: 0.9% SODIUM CHLORIDE 10 ML SYRINGE IVP PRN (17:30)
[2018-02-15 17:37] LABS: APPEARANCE,URINE CLEAR (CLEAR); BILIRUBIN,URINE NEGATIVE (NEGATIVE); GLUCOSE, URINE (UA) NEGATIVE (NEGATIVE); KETONES,URINE TRACE mg/dL (NEGATIVE); LEUKOCYTE ESTERASE ,URINE NEGATIVE (NEGATIVE); NITRATE,URINE NEGATIVE (NEGATIVE); OCCULT BLOOD,URINE SMALL (NEGATIVE); PROTEIN,URINE SEE CONFIRM (NEGATIVE); UROBILINOGEN,URINE 0.2 mg/dL (<=1.0)
[2018-02-15 17:45] LABS: SULFOSALICYLIC ACID,URINE 4+ (Negative)
[2018-02-15 17:46] LABS: BACTERIA,URINE Rare /HPF (None Seen); RBC,URINE 0-2 /HPF (0-2); SQUAMOUS EPITHELIAL CELL,UR Few /LPF (None Seen)
[2018-02-15 17:47] LABS: HYALINE CASTS, URINE 0-2 /LPF (None Seen); MUCUS,URINE Rare LPF (None Seen)
[2018-02-15 17:48] LABS: COARSE GRANULAR CASTS,URINE 0-2 /LPF (None Seen)
[2018-02-15 21:10] VITALS: BP 141/81
[2018-02-15] MEDS ORDERED: MORPHINE SULFATE 4 MG/ML SYRINGE IVP PRN (21:15)
[2018-02-15] MEDS ORDERED: ZOLPIDEM TARTRATE 10 MG TABLET PO PRN (21:15)
[2018-02-15] MEDS ORDERED: IPRATROPIUM BROMIDE 0.5 MG/2.5 ML NEB SOLUTION NEB PRN (21:15)
[2018-02-15] MEDS ORDERED: HYDROCODONE/ACETAMINOPHEN 5-325 MG TABLET PO PRN (21:15)
[2018-02-15] MEDS ORDERED: MAGNESIUM HYDROXIDE SUSPENSION 30 ML UDCUP PO PRN (21:15)
[2018-02-15 23:49] VITALS: BP 139/75
[2018-02-16] MEDS: NITROGLYCERIN 2% (1 GM=INCH) PACKET TP SCH ×2 (00:17→05:40)
[2018-02-16] MEDS ORDERED: PNEUMOCOCCAL VACCINE POLYVALENT 0.5 ML VIAL [PPSV23] IM ONE (03:00)
[2018-02-16 03:50] VITALS: BP 147/89
[2018-02-16 05:55] LABS: BASOPHILS % (AUTO) 0.4 % (0.0-2.0); EOSINOPHILS % (AUTO) 3.1 % (1.0-6.0); HEMATOCRIT 39.3 % (41-53); HEMOGLOBIN 13.4 g/dL (13.5-17.5); LYMPHOCYTES # (AUTO) 2.9 K/uL (1.0-4.8); MEAN CORPUSCULAR HEMOGLOBIN 30.8 pg (26.0-34.0); MEAN CORPUSCULAR HGB CONC 34.1 G/dL (31.0-37.0); MEAN CORPUSCULAR VOLUME 90 fL (80-100); MONOCYTES # (AUTO) 0.8 K/uL (0.1-1.0); MONOCYTES % (AUTO) 8.1 % (2.0-9.0); NEUTROPHILS # (AUTO) 6.2 K/uL (1.8-7.7); NEUTROPHILS % (AUTO) 60.4 % (40.0-70.0); PLATELET COUNT (AUTO) 258 K/uL (150-450); RED BLOOD CELL COUNT(AUTO) 4.35 MIL/uL (4.50-5.90); RED CELL DISTRIBUTION WIDTH 15.3 % (11.5-14.5)
[2018-02-16 06:14] LABS: ALBUMIN 3.7 g/dL (3.4-5.0); BILIRUBIN,TOTAL 0.3 mg/dL (0.1-1.0); CALCIUM, TOTAL 9.1 mg/dL (8.8-10.5); CHOL/HDL RATIO 4.5 (4.2-7.3); CREATININE 4.47 mg/dL (0.60-1.30); MAGNESIUM 2.1 mg/dL (1.80-2.40); POTASSIUM 3.6 mmol/L (3.5-5.1); TOTAL PROTEIN, SERUM 7.8 g/dL (6.4-8.2)
[2018-02-16] MEDS ORDERED: AmLODIPine BESYLATE 2.5 MG TABLET PO SCH (09:00)
[2018-02-16] MEDS ORDERED: PANTOPRAZOLE SODIUM 40 MG DR TABLET PO SCH (09:00)
[2018-02-16] MEDS ORDERED: DOCUSATE SODIUM 100 MG CAPSULE PO SCH (09:00)
[2018-02-16] MEDS ORDERED: ASPIRIN 81 MG CHEWABLE TABLET PO SCH (09:00)
[2018-02-16] MEDS ORDERED: CARVEDILOL 6.25 MG TABLET PO SCH (09:30)
[2018-02-16 09:44] VITALS: BP 145/96
[2018-02-16] MEDS ORDERED: ASPI-556 PO (10:49)
[2018-02-16] MEDS ORDERED: ATOR10TA84 PO (10:50)
[2018-02-16] MEDS ORDERED: CARV6.2579 PO (10:50)
== END 2018-02-16 11:20 | disposition home or self-care (01) | DRG 311 ==
LOC: EMS 15:17 → 5S 17:19 → UNDOADMIN 17:19 → UNDODISIN 02-16 11:20
PROVIDERS: ADMIT Hospitalist; ATTEND Hospitalist
PROC: 3E0234Z Introduction of Serum, Toxoid and Vaccine into Muscle, Percutaneous Approach (ICD-10-PCS; principal; 2018-02-16)
DX: I20.9 Angina pectoris, unspecified (principal); I13.2 Hypertensive heart and chronic kidney disease with heart failure and with stage 5 chronic kidney disease, or end stage renal disease; N18.6 End stage renal disease; I50.9 Heart failure, unspecified; I25.2 Old myocardial infarction; Z99.2 Dependence on renal dialysis; Z79.899 Other long term (current) drug therapy; Z91.14 Patient's other noncompliance with medication regimen; Z23 Encounter for immunization
CPT/HCPCS: 83735; 87081; 90471; 93005; 93306; 99285